=== PATIENT | female | born 1985 | race Two or more races ===

== ENCOUNTER 2023-07-01 12:21 | Observation (INO) | payer OTHER ==
[~2023-07-01] VITALS: Ht 157.5 cm; Wt 88.9 kg
[2023-07-01] MEDS ORDERED: CELESTONE SOLUSPAN 6 MG/ML 5ML VIAL IM ONE (13:00)
[2023-07-01] MEDS ORDERED: CELESTONE SOLUSPAN 6 MG/ML 5ML VIAL IM SCH (13:00)
== END 2023-07-01 14:20 | disposition home or self-care (01) ==
LOC: LDH 12:21
PROVIDERS: ADMIT Obstetrics & Gynecology; ATTEND Obstetrics & Gynecology
DX: O36.8330 Maternal care for abnormalities of the fetal heart rate or rhythm, third trimester, not applicable or unspecified (principal); Z3A.29 29 weeks gestation of pregnancy
CPT/HCPCS: 59025; 96372; G0378 ×2; G0379; J0702

== ENCOUNTER 2023-07-02 12:05 | Observation (INO) | payer OTHER ==
[~2023-07-02] VITALS: Ht 157.5 cm; Wt 87.5 kg
[2023-07-02] MEDS ORDERED: CELESTONE SOLUSPAN 6 MG/ML 5ML VIAL IM SCH (12:30)
[2023-07-02 13:12] VITALS: BP 117/70
== END 2023-07-02 13:23 | disposition home or self-care (01) ==
LOC: LDH 12:05
PROVIDERS: ADMIT Obstetrics & Gynecology; ATTEND Obstetrics & Gynecology
DX: Z34.83 Encounter for supervision of other normal pregnancy, third trimester (principal); Z3A.29 29 weeks gestation of pregnancy
CPT/HCPCS: 59025; 96372; G0378; G0379